=== PATIENT | male | born 1970 | race Hispanic/Latino ===

== ENCOUNTER 2017-04-06 10:24 | Day surgery (SDC) | payer BC ==
[2017-04-06] MEDS ORDERED: ANCEF/STERILE WATER 2 GM/20 ML IV NR (11:00)
[2017-04-06] MEDS ORDERED: HEPARIN SUB-Q NR (11:00)
[2017-04-06] MEDS ORDERED: NACL BACTERIOSTATIC INFILTRATI ONE (11:02)
--- NOTE | 2017-04-06 11:43 | Anesthesia Consultation ---
Anesthesia Consult and Med Hx Date of service: 04/06/17 - Airway Anesthetic Teeth Evaluation: Good ROM Head & Neck: Adequate Mental/Hyoid Distance: Adequate Mallampati Class: Class II Intubation Access Assessment: Probably Good - Pulmonary Exam CTA: Yes - Cardiac Exam Cardiac Exam: RRR - Pre-Operative Health Status ASA Pre-Surgery Classification: ASA3 Proposed Anesthetic Plan: General - Pulmonary Hx Sleep Apnea: Yes - Central Nervous System Hx Psychiatric Problems: No - Endocrine Hx Non-Insulin Dependent Diabetes: Yes (diet controlled) - Other Systems Hx Alcohol Use: Yes (occas) Hx Cancer: No Hx Obesity: Yes (morbid) - Additional Comments Anesthesia Medical History Comments: hypercholesterolemia
--- NOTE | 2017-04-06 11:44 | Anesthesia Day of Surgery ---
Anesthesia Day of Surgery - Day of Surgery Patient Examined: Yes Patient H&P Reviewed: Yes Patient is NPO: Yes
[2017-04-06] MEDS ORDERED: DILAUDID IV PRN (11:45)
[2017-04-06 11:46] LABS: Alanine Aminotransferase 37 units/L (7-56); Albumin/Globulin Ratio 1.5 %; Alkaline Phosphatase 82 units/L (35-129); Anion Gap 17 mmol/L; BUN/Creatinine Ratio 23.33; Blood Urea Nitrogen 14 mg/dL (9-20); Calcium 8.7 mg/dL (8.4-10.2); Carbon Dioxide 24 mmol/L (22-30); Chloride 104.4 mmol/L (98-107); Glucose 111 mg/dL (75-100); Potassium 4.6 mmol/L (3.6-5.0); Sodium 141 mmol/L (137-145); Total Protein 6.6 g/dL (6.3-8.2)
[2017-04-06] MEDS ORDERED: ZOFRAN IV PRN (12:00)
[2017-04-06] MEDS ORDERED: NACL 0.9% 1000 ML 1,000 ML IV SCH (12:00)
[2017-04-06] MEDS ORDERED: PERCOCET 5/325 PO PRN (12:00)
[2017-04-06] MEDS ORDERED: PEPCID IV NR (12:00)
[2017-04-06] MEDS ORDERED: VERSED IV NR (12:00)
[2017-04-06] MEDS ORDERED: MARCAINE-EPI/PF 0.5%-1:200,000 INFILTRATI ONE ×2 (12:01→12:47)
[2017-04-06] MEDS ORDERED: DIPRIVAN 10 MG/ML IV ONE (12:19)
[2017-04-06] MEDS ORDERED: XYLOCAINE MPF 2% ONE (12:19)
[2017-04-06] MEDS ORDERED: ZEMURON IV ONE (12:20)
[2017-04-06] MEDS ORDERED: DILAUDID ONE (12:21)
[2017-04-06] MEDS ORDERED: DECADRON ONE (12:41)
[2017-04-06] MEDS ORDERED: ZOFRAN ONE (12:44)
[2017-04-06] MEDS ORDERED: NACL 0.9% IR ONE (12:48)
--- NOTE | 2017-04-06 13:22 | Post Operative Note ---
Pre-op diagnosis: Incarcerated ventral hernia Post-op diagnosis: same Findings: Incarcerated omentum Procedure: Open repair with medium Ventralex mesh Anesthesia: BISHOP Surgeon: RUPERTO MCLAIN Estimated blood loss: minimal Pathology: none Condition: stable Disposition: PACU
--- NOTE | 2017-04-06 14:18 | Post Anesthesia Evaluation ---
- Post Anesthesia Evaluation Patient Participated: Yes Airway Patent: Yes Stable Respiratory Function: Yes Nausea/Vomiting: No Temp > 96.8F: Yes Pain Manageable: Yes Adequeate Hydration: Yes Anesthesia Complications: No Block Receding Appropriately: Not Applicable Patient on Ventilator: No
[2017-04-06 17:53] VITALS: BP 125/70
--- NOTE | 2017-04-11 10:59 | Operative Report ---
Operative Report Operative Report: Date of operation: 04/06/2017 Preoperative diagnosis: Incarcerated ventral hernia Postoperative diagnosis: Same Operation: Open repair of incarcerated ventral hernia with Ventralex mesh Surgeon: Fermin Rivas M.D. Findings: Incarcerated omentum Anesthesia: GETA EBL: Minimal There were no complications, cultures, drains or specimens Description of procedure the patient was placed supine on the operating room table. After adequate general anesthesia was obtained, his abdomen was prepped and draped. Skin and s ubcutaneous tissue over the hernia were infiltrated with 6 mL of 0.5% Marcaine with epinephrine. A small incision was then made over the hernia. The hernia sac was immediately identified in the subcutaneous plane and this was dissected away from the adjacent fat down to its fascial margins. The hernia sac was then incised and was found to contain incarcerated omentum. The omentum was freed up from the hernia sac and the omentum reduced back into the peritoneal cavity. The sac was excised at the level of the fascia. A medium piece of ventral ex mesh was then inserted into the peritoneal cavity. This was secured to the fascia with several interrupted sutures of 2-0 Ethibond. Skin was approximated with a running subcuticular suture of 4-0 Monocryl. A sterile absorbent dressing was applied. Patient tolerated the procedure well. He was extubated in the operating room and was taken to PACU in stable condition.
== END 2017-04-06 16:01 | disposition home or self-care (01) ==
LOC: OR 10:24
PROVIDERS: ATTEND Surgery
DX: K43.6 Other and unspecified ventral hernia with obstruction, without gangrene (principal); E11.9 Type 2 diabetes mellitus without complications; E78.00 Pure hypercholesterolemia, unspecified; E66.01 Morbid (severe) obesity due to excess calories; Z68.41 Body mass index [BMI] 40.0-44.9, adult; Z72.89 Other problems related to lifestyle; Z79.899 Other long term (current) drug therapy
CPT/HCPCS: 36415; 49561; 49568; 80053; 82962; C1781; J0690; J1100; J1170; J1644; J2250; J2405; J2704; J7030